=== PATIENT | male | born 2000 | race Caucasian/White ===

== ENCOUNTER 2024-10-06 15:32 | Emergency (ER) | payer OTHER, SELFPAY ==
[2024-10-06 15:34] VITALS: BP 152/93
--- NOTE | 2024-10-06 15:34 | ED.GENMED ---
ED Provider Triage
<SHANTE Espino - Last Filed: 10/06/24 15:38>
-
Attestation: A medical screening examination has been initiated by a qualified medical provider. Based on the assessment performed at this time, it has been determined that an emergent medical condition may exist and the patient has been informed
that further medical evaluation and possible additional diagnostic testing may be needed.
HPI: 24 yr old male presents to the ED for evaluation of abdominal pain that started for past several days. Has had this pain for years however has never had it evaluated. Pt has pcp appt tomorrow for this.
Pt has tried Pepcid for pain which does seem to help. Denies any nausea/vomiting, fever chills.
GENERAL: Alert , in no apparent distress
EYE: No visual abnormalities.
NECK: Trachea midline
ENT: No visible abnormalities.
LUNGS: No acute respiratory distress
NEUROLOGICAL: Alert and oriented
SKIN: Skin intact. No visible changes.
MUSCULOSKELETAL: Moving extremities normally
PSYCH: Normal and appropriate interaction.
This is a medical evaluation conducted in person to initiate diagnostic evaluation and provide initial therapeutics. Please see further documentation by the treating clinician.
History of Present Illness
<SHANTE Espino - Last Filed: 10/06/24 15:38>
General
Chief Complaint: Abdominal Pain
Time Seen by Provider: 10/06/24 16:51
<Jennifer Armendariz NP - Last Filed: 10/08/24 01:04>
General
Source: patient
Exam Limitations: none
Nursing documentation reviewed up to this point in time: agreed with
History of Present Illness
History of Present Illness:
24-year-old male with no past medical history states he has had right side abdominal pain that comes and goes for 'months.' Pepcid helps. Has had intermittent diarrhea past few days, but he has been taking Miralax thinking it would help his
abdominal pain. Did have a normal BM yesterday. Denies n/v. Denies UTI symptoms.
Past History
<Jennifer Armendariz OFFICER CAPTAIN - Last Filed: 10/08/24 01:04>
Past History
ED Past Medical History: None
ED Past Surgical History: None
Social History
Tobacco: Non-smoker
Alcohol: Occasional
Personal: Single
Employment: Employed
Review of Systems
<Jennifer Armendariz OFFICER CAPTAIN - Last Filed: 10/08/24 01:04>
Review of Systems
Allergies reviewed?: Yes
All Other Systems: ROS reviewed and negative except as documented in HPI and ROS
Constitutional: Denies fever
Respiratory: Denies trouble breathing
Cardiac: Denies chest pain
ABD/GI: Reports abdominal pain and diarrhea; Denies nausea, vomiting or anorexia
: Denies dysuria or difficulty voiding
Musculoskeletal: Reports no symptoms
Skin: Reports no symptoms
Neurological: Reports no symptoms
Phy Exam
<Jennifer Armendariz OFFICER CAPTAIN - Last Filed: 10/08/24 01:04>
Physical Exam
Physical Exam:
GENERAL: No acute distress. A&Ox3.
CONSTITUTIONAL: Afebrile.
EYES: clear, conjunctivae normal
ENMT: moist mucus membranes, Pharynx nl
RESPIRATORY: Regular respirations, nonlabored, lungs clear.
CARDIOVASCULAR: Regular rate and rhythm, no murmurs, no rubs.
GI: Soft, mild tenderness right side abdomen, nontender, normal BS
MUSCULOSKELETAL: Moves with ease. Well perfused.
SKIN: Warm, dry, pink
PSYCH: Normal mood and affect. Well kept, interactive and appropriate
NEUROLOGIC: Awake, alert and oriented. No focal neurological deficits
Course
<SHANTE Espino - Last Filed: 10/06/24 15:38>
Orders/Labs/Results
Orders:
Orders
10/06/24 15:38
US Abdomen Complete/Upper Urgent
Comment:
Reason For Exam: upper abdominal pain.
10/06/24 15:43
Complete Blood Count/With Diff Urgent
Comprehensive Metabolic Panel Urgent
Lipase Urgent
10/06/24 21:17
CT Abd/pel W Iv And Oral Contr Urgent
Comment:
Reason For Exam: Right lower quadrant pain
Iohexol [Omnipaque] See Protocol PO NOW STA
Abnormal Lab Results
10/06/24
15:43
MPV 10.8 H fL
(7.4-10.4)
Lymphocytes % 19.1 L %
(20.5-51.1)
BUN 7 L mg/dl
(9-20)
Glucose 109 H mg/dl
(70-99)
10/06/24 15:43
10/06/24 15:43
Vital Signs
Initial and Last Documented VS:
Initial Vital Signs
Temp Pulse Resp BP Pulse Ox
98.3 F 91 18 152/93 98
10/06/24 15:34 10/06/24 15:34 10/06/24 15:34 10/06/24 15:34 10/06/24 15:34
Last Documented Vital Signs
Temp Pulse Resp BP Pulse Ox
98.3 F 60 18 135/77 99
10/06/24 15:34 10/06/24 23:41 10/06/24 23:41 10/07/24 00:31 10/06/24 23:41
Michaellt;Jennifer Armendariz, OFFICER CAPTAIN - Last Filed: 10/08/24 01:04>
Orders/Labs/Results
Orders:
Orders
10/06/24 15:38
US Abdomen Complete/Upper Urgent
Comment:
Reason For Exam: upper abdominal pain.
10/06/24 15:43
Complete Blood Count/With Diff Urgent
Comprehensive Metabolic Panel Urgent
Lipase Urgent
10/06/24 21:17
CT Abd/pel W Iv And Oral Contr Urgent
Comment:
Reason For Exam: Right lower quadrant pain
Iohexol [Omnipaque] See Protocol PO NOW STA
Abnormal Lab Results
10/06/24
15:43
MPV 10.8 H fL
(7.4-10.4)
Lymphocytes % 19.1 L %
(20.5-51.1)
BUN 7 L mg/dl
(9-20)
Glucose 109 H mg/dl
(70-99)
10/06/24 15:43
10/06/24 15:43
Vital Signs
Initial and Last Documented VS:
Initial Vital Signs
Temp Pulse Resp BP Pulse Ox
98.3 F 91 18 152/93 98
10/06/24 15:34 10/06/24 15:34 10/06/24 15:34 10/06/24 15:34 10/06/24 15:34
Last Documented Vital Signs
Temp Pulse Resp BP Pulse Ox
98.3 F 60 18 135/77 99
10/06/24 15:34 10/06/24 23:41 10/06/24 23:41 10/07/24 00:31 10/06/24 23:41
<Jennifer Armendariz OFFICER CAPTAIN - Last Filed: 10/08/24 01:04>
MDM/Problems Addressed
Differential Diagnosis Includes:
appendicitis, GB disease, musculoskeletal pain
MDM/Problems Addressed:
24-year-old male with no past medical history states he has had right side abdominal pain that comes and goes for 'months.' Pepcid helps. Has had intermittent diarrhea past few days, but he has been taking Miralax thinking it would help his
abdominal pain. Did have a normal BM yesterday. Denies n/v. Denies UTI symptoms.
Afebrile,NAD
CBC, CMP normal
Lipase normal
US abdomen unremarkable
CT abdomen with po and IV contrast:
preliminary radiology report from [email or web address] radiology read: No acute abnormality within the abdomen or pelvis. No bowel obstruction. Normal gallbladder and appendix. Moderate stool burden.
Nothing in workup to explain patients abdominal pain
<Jennifer Armendariz NP - Last Filed: 10/08/24 01:04>
*Critical Care Note
Total Time (30-74mins, 75-104mins- exclusive of procedures): Not Applicable
ED Attending Note
<SHANTE Espino - Last Filed: 10/06/24 15:38>
-
Portions of this chart may have been created with voice recognition software.� Occasional wrong word or��sound alike� substitutions may have occurred due to the inherent limitations of voice recognition software.
Discharge Plan
Departure
Patient Disposition: Home (Routine Discharge)
Date of Disposition: 10/07/24
Time of Disposition: 00:23
Patient with high blood pressure during this ER visit?: No
Condition: Good
Discharge Problem:
Abdominal pain
Instructions: Abdominal Pain
Referrals:
Your, Doctor [Other] - Keep scheduled appt
UNKNOWN - PT DOES,NOT KNOW [Family Provider] -
Activity Restrictions/Additional Instructions:
As we discussed, nothing worrisome in your workup here today. Keep your appointment with your new doctor tomorrow and take copies of results with you
Interventions
Interventions:
*Risk Screen - Suicide Last Done: 10/06/24 15:34
*General Assessment Last Done: 10/06/24 15:34
*Neglect/Abuse Screening Last Done: 10/06/24 15:34
*ED COVID-19 Vaccine History Last Done: 10/06/24 15:34
*Nursing Disposition Last Done: 10/07/24 00:43
LL-Smhqhy-Luhhfbuosh Assessment Last Done: 10/06/24 16:50
Discharge Date and Time
Discharge Date/Time: 10/07/24 00:44
Print Language: [id number]
[2024-10-06 15:55] LABS: % Basophils 0.3 % (0-2); % Eosinophils 3.2 % (0-6); % Immature Granulocytes 0.2 % (0-0.5); % Lymphocytes 19.1 % (20.5-51.1); % Monocytes 6.8 % (1.7-9.3); % Neutrophils 70.4 % (42.2-75.2); Absolute Eosinophils 0.2 10^3/uL (0-0.7); Absolute Lymphocytes 1.3 10^3/uL (1.2-3.4); Absolute Monocytes 0.5 10^3/uL (0.1-0.6); Absolute Neutrophils 4.6 10^3/uL (1.4-6.5); Hematocrit 42.7 % (39.0-52.0); Hemoglobin 15.1 g/dL (13.0-18.0); Mean Corp Hgb Conc. 35.4 g/dL (33.0-37.0); Mean Corpuscular Hgb 28.8 pg (27.0-31.0); Mean Corpuscular Volume 81.3 fL (80.0-94.0); Mean Platelet Volume 10.8 fL (7.4-10.4); Nucleated Red Blood Cells % 0 % (-); Platelet Count 213 10^3/uL (130-400); Red Blood Cell Count 5.25 10^6/uL (4.70-6.10); Red Cell Dist. Width 12.3 % (11.5-14.5); White Blood Cell Count 6.6 10^3/uL (4.8-10.8)
[2024-10-06 16:08] LABS: ALT (SGPT) 18 U/L (0-50); AST (SGOT) 21 U/L (17-59); Albumin 4.9 g/dl (3.5-5.0); Alkaline Phosphatase 77 U/L (38-126); Blood Urea Nitrogen 7 mg/dl (9-20); Carbon Dioxide 28 mmol/L (22-30); Chloride 102 mmol/L (98-107); Glucose 109 mg/dl (70-99); Lipase 72 U/L (23-300); Potassium 3.8 mmol/L (3.5-5.1); Sodium 139 mmol/L (135-145); Total Bilirubin 0.8 mg/dl (0.2-1.3); Total Protein 7.5 g/dl (6.3-8.2); eGFR > 60.00
[2024-10-06] MEDS: OMNIPAQUE 50 ML PO (21:23)
[2024-10-06 23:41] VITALS: BP 151/71
[2024-10-07 00:31] VITALS: BP 135/77
== END 2024-10-07 00:44 | disposition home or self-care (01) ==
LOC: EMR 15:32
PROVIDERS: Nurse Practitioner; EMERGENCY PHYSICIAN Student in an Organized Health Care Education/Training Program
DX: R10.11 Right upper quadrant pain (principal); R19.7 Diarrhea, unspecified
CPT/HCPCS: 99284; 74177; 76700; 80053; 83690; 85025; Q9967